=== PATIENT | female | born 1965 | race Caucasian/White ===

== ENCOUNTER → 2022-12-08 12:02 | Outpatient (BNVA) | payer OTHER, SELFPAY | PROVIDERS: PCP Family Medicine; Referring Provider Urology; Visit Provider Internal Medicine | DX: E03.9 Hypothyroidism, unspecified (principal); R79.89 Other specified abnormal findings of blood chemistry; M85.80 Other specified disorders of bone density and structure, unspecified site; R82.994 Hypercalciuria; N20.0 Calculus of kidney; I10 Essential (primary) hypertension; Z79.890 Hormone replacement therapy | CPT/HCPCS: 36415; 84439; 84443; 84480 ==

== ENCOUNTER → 2023-02-15 12:43 | Outpatient (BNVA) | payer OTHER, SELFPAY | PROVIDERS: PCP Family Medicine; Visit Provider Internal Medicine | DX: E07.9 Disorder of thyroid, unspecified (principal); E03.9 Hypothyroidism, unspecified; R79.89 Other specified abnormal findings of blood chemistry; M85.80 Other specified disorders of bone density and structure, unspecified site; R82.994 Hypercalciuria; N20.0 Calculus of kidney; I10 Essential (primary) hypertension; F32.A Depression, unspecified; M81.0 Age-related osteoporosis without current pathological fracture | CPT/HCPCS: 36415; 80053; 82306; 82310; 83516; 83970; 84439; 84443; 86376; 86800 ==

== ENCOUNTER → 2023-11-28 11:50 | Outpatient (BNVA) | payer OTHER, SELFPAY | PROVIDERS: PCP Family Medicine; Visit Provider Internal Medicine | DX: E03.9 Hypothyroidism, unspecified (principal) | CPT/HCPCS: 36415; 84439; 84443 ==

== ENCOUNTER 2023-12-26 12:27 | Outpatient (CLI) | payer OTHER, SELFPAY | END 2023-12-26 12:28 | disposition home or self-care (01) | LOC: LAB 12:28 | PROVIDERS: PCP Family Medicine; Visit Provider Internal Medicine | DX: E03.9 Hypothyroidism, unspecified (principal) | CPT/HCPCS: 36415 ==

== ENCOUNTER 2024-08-09 10:09 | Outpatient (CLI) | payer OTHER, SELFPAY ==
[2024-08-09 11:40] LABS: Thyroid Stimulating Hormone 0.02 uIU/mL (0.27-4.20)
[2024-08-10 06:10] LABS: T3 Total 117 ng/dL (76-181)
== END 2024-08-09 10:10 | disposition home or self-care (01) ==
PROVIDERS: PCP Family Medicine; Visit Provider Internal Medicine
DX: E03.9 Hypothyroidism, unspecified (principal)
CPT/HCPCS: 36415; 84439; 84443; 84480

== ENCOUNTER 2025-01-14 09:57 | Outpatient (CLI) | payer OTHER, SELFPAY ==
--- NOTE | 2025-01-14 10:30 | US_ITS ---
WS: [id number] THYROID ULTRASOUND HISTORY: Hypothyroidism. COMPARISON: None available. Right lobe: 0.7 cm x 1.1 cm x 3.0 cm (w x ap x l). Volume: 1.2 cm3. Low normal size thyroid. There is a subtle area of mixed echogenicity in the mid RIGHT thyroid measuring 0.3 x 0.4 x 0.5 cm. No associated echogenic foci. Left lobe: 0.8 cm x 0.6 cm x 2.8 cm (w x ap x l). Volume: 0.6 cm3. Low normal size thyroid. No mass. No increased vascularity. Isthmus: 0.2 cm. US/US thyroid 95205 IMPRESSION: TI-RADS 2; no suspicious nodules. No follow-up or biopsy recommended.
== END 2025-01-14 09:58 | disposition home or self-care (01) ==
PROVIDERS: PCP Family Medicine; Visit Provider Internal Medicine Endocrinology, Diabetes & Metabolism
DX: E03.9 Hypothyroidism, unspecified (principal); R79.89 Other specified abnormal findings of blood chemistry
CPT/HCPCS: 76536